=== PATIENT | male | born 1945 | race Caucasian/White ===

== ENCOUNTER 2020-09-18 10:22 | Outpatient (CLI) | payer MEDICARE | END 2020-09-18 10:23 | disposition home or self-care (01) | LOC: CTENTCT 10:22 | PROVIDERS: ATTEND Specialist | DX: J32.9 Chronic sinusitis, unspecified (principal) | CPT/HCPCS: 70486 ==

== ENCOUNTER 2020-12-09 14:08 | Outpatient (CLI) | payer MEDICARE ==
[2020-12-09 15:18] LABS: Anion Gap 14 mmol/L (10-20); BUN (Urea Nitrogen) 15 mg/dL (8.4-25.7); Calc. Creatinine Clearance 0 mL/min (70-130); Calcium 9.8 mg/dL (7.8-10.44); Carbon Dioxide 24 mmol/L (23-31); Chloride 104 mmol/L (98-107); Glucose 172 mg/dL (83-110); Potassium 4.3 mmol/L (3.5-5.1); Sodium 138 mmol/L (136-145)
[2020-12-09 15:53] LABS: SARS-CoV-2 NAA Rapid Test Not Detected (NotDetected)
== END 2020-12-09 14:09 | disposition home or self-care (01) ==
LOC: LABBT 14:08
PROVIDERS: ATTEND Specialist
DX: Z01.818 Encounter for other preprocedural examination (principal); J38.1 Polyp of vocal cord and larynx; K21.9 Gastro-esophageal reflux disease without esophagitis; R49.0 Dysphonia; Z20.822 Contact with and (suspected) exposure to COVID-19
CPT/HCPCS: 80048; 85014; 85018; 93005; U0002; 93010

== ENCOUNTER 2020-12-10 08:56 | Day surgery (SDC) | payer MEDICARE ==
[2020-12-09 16:06] VITALS: BMI 32.1
[2020-12-10] MEDS ORDERED: EPINEPHrine 1 MG/ML AMP ONE (09:38)
[2020-12-10] MEDS ORDERED: Propofol 500 MG/50 ML VIAL ONE (09:41)
[2020-12-10] MEDS ORDERED: Fentanyl 100 MCG/2 ML VIAL ONE ×2 (09:41)
[2020-12-10] MEDS ORDERED: PROPOFOL 200 MG/20 ML VIAL ONE (10:25)
[2020-12-10] MEDS ORDERED: Lidocaine 1% PF 5 ML VIAL ONE (10:25)
[2020-12-10] MEDS ORDERED: Ondansetron PF 4 MG/2 ML Vial ONE (10:25)
== END 2020-12-10 13:36 | disposition home or self-care (01) ==
LOC: SDC 08:56
PROVIDERS: ATTEND Specialist
PROC: 0CBV8ZZ Excision of Left Vocal Cord, Via Natural or Artificial Opening Endoscopic (ICD-10-PCS; principal; 2020-12-10)
DX: J38.3 Other diseases of vocal cords (principal); G47.30 Sleep apnea, unspecified; D64.89 Other specified anemias; K21.9 Gastro-esophageal reflux disease without esophagitis; E11.9 Type 2 diabetes mellitus without complications; Z79.84 Long term (current) use of oral hypoglycemic drugs; Z79.1 Long term (current) use of non-steroidal anti-inflammatories (NSAID); Z79.899 Other long term (current) drug therapy; Z87.891 Personal history of nicotine dependence; Z92.3 Personal history of irradiation; Z85.46 Personal history of malignant neoplasm of prostate
CPT/HCPCS: 36416; 88305; J0171; J2405; J2704; J3010

== ENCOUNTER 2022-04-12 05:49 | Observation (INO) | payer OTHER ==
[2022-04-11 09:41] VITALS: BMI 34.4
[2022-04-12] MEDS ORDERED: Vancomycin (BATCH) 1.5 GRAM/300 ML BAG ONE (06:14)
[2022-04-12] MEDS ORDERED: Sodium Chloride 0.9% 100 ML ONE ×2 (06:14→07:00)
[2022-04-12] MEDS ORDERED: Tranexamic Acid 1,000 MG/10 ML VIAL ONE (06:14)
[2022-04-12] MEDS ORDERED: Bupivacaine PF 0.5% 30 ML VIAL ONE (06:27)
[2022-04-12] MEDS ORDERED: Fentanyl 250 MCG/5 ML VIAL ONE (06:30)
[2022-04-12] MEDS ORDERED: Fentanyl 100 MCG/2 ML VIAL ONE (06:34)
[2022-04-12] MEDS ORDERED: Midazolam HCl 2 mg/2 ml Vial ONE (06:34)
[2022-04-12] MEDS ORDERED: Ropivacaine 0.5% HCl/PF (150 MG/30 ML VIAL) ONE (06:34)
[2022-04-12] MEDS ORDERED: CEFAZOLIN 2 GM VIAL ONE (07:00)
[2022-04-12] MEDS ORDERED: Zolpidem Tartrate 5 MG TAB PO PRN (07:18)
[2022-04-12] MEDS ORDERED: Acetaminophen 325 MG TAB PO PRN (07:18)
[2022-04-12] MEDS ORDERED: HYDROcodone/Acetaminophen 10/325 mg Tablet PO PRN (07:18)
[2022-04-12] MEDS ORDERED: Promethazine HCl 25 MG/ML VIAL IM PRN (07:18)
[2022-04-12] MEDS ORDERED: diphenhydrAMINE 25 MG CAP PO PRN (07:18)
[2022-04-12] MEDS ORDERED: Fentanyl 100 MCG/2 ML VIAL SLOW IVP PRN ×2 (07:18)
[2022-04-12] MEDS ORDERED: Ondansetron PF 4 MG/2 ML Vial IVP PRN (07:18)
[2022-04-12 07:37] LABS: SARS-CoV-2 NAA Rapid Test DETECTED (NotDetected)
[2022-04-12] MEDS ORDERED: PROPOFOL 20 ML ONE (08:19)
[2022-04-12] MEDS ORDERED: Ketorolac Tromethamine 30 MG/ML VIAL IVP PRN (09:06)
[2022-04-12] MEDS ORDERED: Ondansetron HCl/PF 4 MG/2 ML Vial IVP PRN (09:06)
[2022-04-12] MEDS: glipiZIDE 10 MG TAB PO SCH (14:54)
[2022-04-12] MEDS: Sodium Chloride 0.9% 1,000 ML IV SCH (14:54)
[2022-04-12] MEDS: Losartan 25 MG TAB PO SCH (14:55)
[2022-04-12] MEDS: Ferrous Gluconate 324 MG TAB PO SCH ×2 (14:55→15:26)
[2022-04-12] MEDS: metFORMIN 500 MG TAB PO SCH ×2 (14:55→15:26)
[2022-04-12] MEDS: CEFAZOLIN 2 GM in Sodium Chloride 0.9% 100 ML IVPB SCH ×2 (14:56→21:22)
[2022-04-12] MEDS: HYDROcodone/Acetaminophen 10/325 mg Tablet PO PRN ×2 (15:25→21:22)
[2022-04-12 18:58] LABS: SARS-CoV-2 NAA Rapid Test Not Detected (NotDetected)
[2022-04-12] MEDS: Multivitamin W/ Minerals 1 TAB PO SCH (19:51)
[2022-04-12] MEDS: Aspirin 81 mg Enteric Coated Tablet PO SCH ×2 (19:51→21:23)
[2022-04-12] MEDS: Senokot S 8.6-50 MG TAB PO SCH ×2 (19:51→21:23)
[2022-04-13] MEDS: HYDROcodone/Acetaminophen 10/325 mg Tablet PO PRN ×3 (01:16→14:13)
[2022-04-13] MEDS: Sodium Chloride 0.9% 1,000 ML IV SCH ×2 (06:50→14:13)
[2022-04-13 07:27] LABS: Hemoglobin 13.5 g/dL (14.0-18.0); Mean Corpuscular HGB CONC 33.8 g/dL (32.0-36.0); Mean Corpuscular Hemoglobin 36.1 pg (27.0-31.0); Mean Platelet Volume 8.8 fL (7.4-10.4); Platelet Count 194 10x3/uL (130-400); RBC Distribution Width 11.1 % (11.5-14.5); Red Blood Cell (RBC) Count 3.75 mill/uL (4.70-6.10); White Blood Cell (WBC) Count 12.6 10x3/uL (4.8-10.8)
[2022-04-13] MEDS: Ferrous Gluconate 324 MG TAB PO SCH (09:21)
[2022-04-13] MEDS: Senokot S 8.6-50 MG TAB PO SCH (09:21)
[2022-04-13] MEDS: Multivitamin W/ Minerals 1 TAB PO SCH (09:21)
[2022-04-13] MEDS: metFORMIN 500 MG TAB PO SCH (09:22)
[2022-04-13] MEDS: Aspirin 81 mg Enteric Coated Tablet PO SCH (09:22)
[2022-04-13] MEDS: glipiZIDE 10 MG TAB PO SCH (09:22)
[2022-04-13] MEDS: Losartan 25 MG TAB PO SCH (09:22)
[2022-04-13 13:33] VITALS: BP 110/65; TEMP 98.8
== END 2022-04-13 14:30 | disposition home health service (06) ==
LOC: SDC 05:49 → SURG B 10:51
PROVIDERS: ADMIT Orthopaedic Surgery; ATTEND Orthopaedic Surgery
PROC: 0SRB04A Replacement of Left Hip Joint with Ceramic on Polyethylene Synthetic Substitute, Uncemented, Open Approach (ICD-10-PCS; principal; 2022-04-12)
DX: M16.0 Bilateral primary osteoarthritis of hip (principal); U07.1 COVID-19; E11.9 Type 2 diabetes mellitus without complications; Z85.46 Personal history of malignant neoplasm of prostate; Z79.84 Long term (current) use of oral hypoglycemic drugs; Z79.899 Other long term (current) drug therapy
CPT/HCPCS: 36415; 36416; 85027; C1776; J2250; J2704; J2795; J3010; J3370; J3490; S0020; U0002

== ENCOUNTER 2022-07-21 09:15 | Outpatient (CLI) | payer OTHER ==
[2022-07-21 11:01] LABS: #Basophils 0.1 10x3/uL (0.0-0.2); #Eosinphils 0.1 10x3/uL (0.0-0.5); #Monocytes 0.6 10x3/uL (0.0-1.1); #Neutrophils 3.8 10x3/uL (1.5-8.4); %Basophils 0.9 % (0.0-2.0); %Eosinophils 2.2 % (0.0-6.0); %Lymphocytes 28.7 % (18.0-47.0); %Monocytes 9.4 % (0.0-10.0); %Neutrophils 58.5 % (40.0-75.0); Hemoglobin 14.3 g/dL (13.5-17.5); Mean Corpuscular HGB CONC 34.1 g/dL (32.0-36.0); Mean Corpuscular Hemoglobin 34.2 pg (27.0-33.0); Mean Corpuscular Volume 100.2 fl (81.2-95.1); Mean Platelet Volume 10.9 fl (7.4-10.4); Platelet Count 186 10x3/uL (150-450); RBC Distribution Width 12.1 % (11.5-14.5); Red Blood Cell (RBC) Count 4.18 10x6/uL (4.32-5.72); White Blood Cell (WBC) Count 6.5 10x3/uL (3.5-10.5)
[2022-07-21 11:10] LABS: INR-International Normal Ratio 0.9; Prothrombin Time 10.3 sec (9.5-12.1)
[2022-07-21 11:14] LABS: Anion Gap 15 mmol/L (10-20); BUN (Urea Nitrogen) 16 mg/dL (8.4-25.7); Calc. Creatinine Clearance 0 mL/min (70-130); Calcium 9.2 mg/dL (7.8-10.44); Carbon Dioxide 22 mmol/L (23-31); Chloride 107 mmol/L (98-107); Estimated GFR 90; Glucose 228 mg/dL (83-110); Potassium 4.6 mmol/L (3.5-5.1); Sodium 139 mmol/L (136-145)
== END 2022-07-21 09:16 | disposition home or self-care (01) ==
LOC: LABBT 09:15
PROVIDERS: ATTEND Orthopaedic Surgery
DX: Z01.812 Encounter for preprocedural laboratory examination (principal); M16.11 Unilateral primary osteoarthritis, right hip
CPT/HCPCS: 80048; 85025; 85610; 87081

== ENCOUNTER 2022-07-26 06:46 | Observation (INO) | payer OTHER ==
[2022-07-22 15:24] VITALS: BMI 31.4
[2022-07-26] MEDS ORDERED: fentaNYL 50 mcg/mL 1 mL Vial ONE (07:39)
[2022-07-26] MEDS ORDERED: Midazolam HCl 2 mg/2 ml Vial ONE (07:39)
[2022-07-26] MEDS ORDERED: Bupivacaine PF 0.5% 30 ML VIAL ONE ×2 (07:40→09:02)
[2022-07-26] MEDS ORDERED: Vancomycin (BATCH) 1.5 GRAM/300 ML BAG ONE (08:00)
[2022-07-26] MEDS ORDERED: Tranexamic Acid 1,000 MG/10 ML VIAL ONE (08:00)
[2022-07-26] MEDS ORDERED: Sodium Chloride 0.9% 200 ML ONE (08:00)
[2022-07-26] MEDS ORDERED: CEFAZOLIN 2 GM VIAL ONE (08:00)
[2022-07-26] MEDS ORDERED: Ondansetron PF 4 MG/2 ML Vial IVP PRN (09:09)
[2022-07-26] MEDS ORDERED: Zolpidem Tartrate 5 MG TAB PO PRN (09:09)
[2022-07-26] MEDS ORDERED: Promethazine HCl 25 MG/ML VIAL IM PRN ×2 (09:09→11:02)
[2022-07-26] MEDS ORDERED: Fentanyl 100 MCG/2 ML VIAL SLOW IVP PRN ×2 (09:09)
[2022-07-26] MEDS ORDERED: Acetaminophen 325 MG TAB PO PRN (09:09)
[2022-07-26] MEDS ORDERED: HYDROcodone/Acetaminophen 10/325 mg Tablet PO PRN (09:09)
[2022-07-26] MEDS ORDERED: fentaNYL PF 100 MCG/2 ML SYRINGE ONE ×2 (09:15→09:50)
[2022-07-26] MEDS ORDERED: Lidocaine 1% PF 5 ML VIAL ONE (09:25)
[2022-07-26] MEDS ORDERED: Rocuronium Bromide 10 MG/ML (10ML VIAL) ONE (09:25)
[2022-07-26] MEDS ORDERED: PROPOFOL 200 MG/20 ML VIAL ONE (09:25)
[2022-07-26] MEDS ORDERED: Phenylephrine 10 MG/ML VIAL ONE (09:25)
[2022-07-26] MEDS ORDERED: Ketorolac Tromethamine 30 MG/ML VIAL ONE (09:25)
[2022-07-26] MEDS ORDERED: Ondansetron PF 4 MG/2 ML Vial ONE (09:25)
[2022-07-26] MEDS ORDERED: Bupivacaine HCl 0.5%/Epinephrine 1:200,000/PF 30 ml Vial ONE (09:25)
[2022-07-26] MEDS ORDERED: GLYCOPYRROLATE/PF 0.2 MG/ML VIAL ONE (09:25)
[2022-07-26] MEDS ORDERED: Dexamethasone 20 MG/5 ML VIAL ONE (09:25)
[2022-07-26] MEDS ORDERED: NEOSTIGMINE 3 MG/3 ML SYR 3 MG/3 ML SYRINGE ONE (09:25)
[2022-07-26] MEDS ORDERED: fentaNYL 50 mcg/mL 1 mL Vial SLOW IVP PRN ×2 (10:06→10:07)
[2022-07-26] MEDS ORDERED: Ondansetron HCl/PF 4 MG/2 ML Vial IVP PRN (11:02)
[2022-07-26] MEDS ORDERED: CEFAZOLIN 2 GM in Sodium Chloride 0.9% 100 ML IVPB SCH (14:00)
[2022-07-26] MEDS: HYDROcodone/Acetaminophen 10/325 mg Tablet PO PRN ×2 (14:05→21:09)
[2022-07-26] MEDS: diphenhydrAMINE 25 MG CAP PO PRN ×2 (14:05→21:07)
[2022-07-26] MEDS: Sodium Chloride 0.9% 1,000 ML IV SCH ×2 (15:30→19:15)
[2022-07-26] MEDS: CEFAZOLIN 2 GM in Sodium Chloride 0.9% 100 ML IVPB SCH (16:15)
[2022-07-26] MEDS ORDERED: glipiZIDE 10 MG TAB PO SCH (21:00)
[2022-07-26] MEDS ORDERED: metFORMIN 500 MG TAB PO SCH (21:00)
[2022-07-26] MEDS: Ferrous Gluconate 324 MG TAB PO SCH (21:08)
[2022-07-26] MEDS: glipiZIDE 10 MG TAB PO SCH (21:08)
[2022-07-26] MEDS: Senokot S 8.6-50 MG TAB PO SCH (21:08)
[2022-07-26] MEDS: metFORMIN 500 MG TAB PO SCH (21:08)
[2022-07-26] MEDS: Aspirin 81 mg Enteric Coated Tablet PO SCH (21:09)
[2022-07-27] MEDS: CEFAZOLIN 2 GM in Sodium Chloride 0.9% 100 ML IVPB SCH (00:30)
[2022-07-27] MEDS: Sodium Chloride 0.9% 1,000 ML IV SCH (04:55)
[2022-07-27] MEDS: diphenhydrAMINE 25 MG CAP PO PRN (05:16)
[2022-07-27 06:07] LABS: Hemoglobin 13.8 g/dL (14.0-18.0); Mean Corpuscular HGB CONC 32.3 g/dL (32.0-36.0); Mean Corpuscular Hemoglobin 34.5 pg (27.0-31.0); Mean Platelet Volume 8.5 fL (7.4-10.4); Platelet Count 166 10x3/uL (130-400); RBC Distribution Width 11.4 % (11.5-14.5); Red Blood Cell (RBC) Count 3.99 mill/uL (4.70-6.10); White Blood Cell (WBC) Count 9.1 10x3/uL (4.8-10.8)
[2022-07-27] MEDS ORDERED: Aspirin 81 mg Enteric Coated Tablet PO SCH (09:00)
[2022-07-27] MEDS ORDERED: Losartan 25 MG TAB PO SCH ×2 (09:00)
[2022-07-27] MEDS ORDERED: Multivitamin W/ Minerals 1 TAB PO SCH (09:00)
[2022-07-27] MEDS: glipiZIDE 10 MG TAB PO SCH (09:02)
[2022-07-27] MEDS: Aspirin 81 mg Enteric Coated Tablet PO SCH (09:02)
[2022-07-27] MEDS: metFORMIN 500 MG TAB PO SCH (09:02)
[2022-07-27] MEDS: Senokot S 8.6-50 MG TAB PO SCH (09:03)
[2022-07-27] MEDS: Ferrous Gluconate 324 MG TAB PO SCH (09:03)
[2022-07-27 13:00] VITALS: BP 96/60; TEMP 98.3
== END 2022-07-27 12:20 | disposition home or self-care (01) ==
LOC: SDC 06:46 → SURG B 11:55
PROVIDERS: ADMIT Orthopaedic Surgery; ATTEND Orthopaedic Surgery
PROC: 0SR90J9 Replacement of Right Hip Joint with Synthetic Substitute, Cemented, Open Approach (ICD-10-PCS; principal; 2022-07-26)
DX: M16.11 Unilateral primary osteoarthritis, right hip (principal); E11.9 Type 2 diabetes mellitus without complications; Z96.642 Presence of left artificial hip joint; Z79.84 Long term (current) use of oral hypoglycemic drugs; Z79.82 Long term (current) use of aspirin; Z79.899 Other long term (current) drug therapy; Z88.5 Allergy status to narcotic agent; Z87.891 Personal history of nicotine dependence
CPT/HCPCS: 36415; 36416; 85027; 96365; 96375; C1776; G0378; J1100; J1885; J2250; J2370; J2405; J2704; J3010; J3370; J3490; S0020

== ENCOUNTER 2022-10-13 09:58 | Outpatient (CLI) | payer OTHER ==
[2022-10-13 11:39] LABS: #Basophils 0.1 10x3/uL (0.0-0.2); #Eosinphils 0.1 10x3/uL (0.0-0.5); #Monocytes 0.8 10x3/uL (0.0-1.1); #Neutrophils 5.1 10x3/uL (1.5-8.4); %Basophils 1.1 % (0.0-2.0); %Eosinophils 1.7 % (0.0-6.0); %Lymphocytes 21.5 % (18.0-47.0); %Monocytes 10.7 % (0.0-10.0); %Neutrophils 64.6 % (40.0-75.0); Hemoglobin 14.8 g/dL (13.5-17.5); Mean Corpuscular HGB CONC 34.3 g/dL (32.0-36.0); Mean Corpuscular Hemoglobin 34.4 pg (27.0-33.0); Mean Corpuscular Volume 100.2 fl (81.2-95.1); Mean Platelet Volume 10.6 fl (7.4-10.4); Platelet Count 210 10x3/uL (150-450); RBC Distribution Width 12.7 % (11.5-14.5); White Blood Cell (WBC) Count 7.9 10x3/uL (3.5-10.5)
[2022-10-13 11:57] LABS: ALT (SGPT) 16 U/L (8-55); AST (SGOT) 23 U/L (5-34); Alkaline Phosphatase 67 U/L (40-110); Anion Gap 15 mmol/L (10-20); BUN (Urea Nitrogen) 16 mg/dL (8.4-25.7); Bilirubin, Total 1.5 mg/dL (0.2-1.2); Calc. Creatinine Clearance 0 mL/min (70-130); Calcium 9.3 mg/dL (7.8-10.44); Carbon Dioxide 20 mmol/L (23-31); Chloride 106 mmol/L (98-107); Estimated GFR 76; Globulin 3.2 g/dL (2.4-3.5); Glucose 153 mg/dL (83-110); Potassium 4.4 mmol/L (3.5-5.1); Protein, Total 7.2 g/dL (5.8-8.1); Sodium 137 mmol/L (136-145)
== END 2022-10-13 09:59 | disposition home or self-care (01) ==
LOC: LABBT 09:58
PROVIDERS: ATTEND Internal Medicine Cardiovascular Disease
DX: Z01.818 Encounter for other preprocedural examination (principal); I35.0 Nonrheumatic aortic (valve) stenosis
CPT/HCPCS: 80053; 85025; 93005; 93010

== ENCOUNTER 2023-05-18 11:06 | Inpatient (IN) | payer MEDICARE, OTHER ==
[2023-05-18] MEDS ORDERED: Iopamidol-370 76% 500 ML MDV (1 ML CHARGE) ONE ×2 (11:26→11:32)
[2023-05-18 11:51] LABS: #Basophils 0.1 thou/uL (0.0-0.2); #Eosinphils 0.1 thou/uL (0.0-0.7); #Monocytes 0.8 thou/uL (0.11-0.59); #Neutrophils 5.4 thou/uL (1.40-6.50); %Basophils 0.9 % (0.0-1.0); %Eosinophils 1.2 % (0.0-10.0); %Lymphocytes 16.3 % (21.0-51.0); %Monocytes 10.1 % (0.0-10.0); %Neutrophils 71.1 % (42.0-75.0); Hematocrit 28.6 % (42.0-52.0); Mean Corpuscular HGB CONC 31.5 g/dL (32.0-36.0); Mean Corpuscular Volume 95.3 fl (78.0-98.0); Mean Platelet Volume 10.9 fL (7.4-10.4); Platelet Count 140 10x3/uL (130-400); RBC Distribution Width 12.7 % (11.5-14.5); White Blood Cell (WBC) Count 7.6 10x3/uL (4.8-10.8)
[2023-05-18 12:13] LABS: ALT (SGPT) 8 U/L (8-55); AST (SGOT) 14 U/L (5-34); Albumin 3.8 g/dL (3.4-4.8); Alkaline Phosphatase 45 U/L (40-110); Anion Gap 12 mmol/L (10-20); BUN (Urea Nitrogen) 20 mg/dL (8.4-25.7); Bilirubin, Total 1.1 mg/dL (0.2-1.2); Calc. Creatinine Clearance 0 mL/min (70-130); Calcium 8.9 mg/dL (7.8-10.44); Carbon Dioxide 21 mmol/L (23-31); Chloride 108 mmol/L (98-107); Estimated GFR 90; Glucose 181 mg/dL (83-110); Lipase 27 U/L (8-78); Potassium 4.2 mmol/L (3.5-5.1); Protein, Total 6.8 g/dL (5.8-8.1); Sodium 137 mmol/L (136-145)
[2023-05-18 12:27] LABS: Troponin I Less than 0.010 ng/mL (< 0.028)
[2023-05-18 12:36] LABS: PTT 27.8 sec (22.9-36.1)
[2023-05-18 13:32] LABS: Bacteria/HPF None Seen HPF (None Seen); Bilirubin Negative (Negative); Blood, Urine Negative (Negative); CAUTI Indications for Culture Dysuria,urgency,freq; Clarity Clear (Clear); Glucose, Urine (Dipstick) Greater than 1000 mg/dL (Negative); Ketone, Urine Negative (Negative); Leukocyte Negative Leu/uL (Negative); Nitrite Negative (Negative); Protein, Urine (Dipstick) Negative (Neg-Trace); RBC/HPF 0-3 HPF (0-3); Specific Gravity, Urine 1.031 (1.002-1.036); Squamous Epithelial None Seen HPF (0-3); Urobilinogen Normal mg/dL (Less than 2); WBC/HPF 0-3 HPF (0-3); pH, Urine 5.5 (5.0-9.0)
[2023-05-18 13:35] LABS: Urine Culture Reflex No No
[2023-05-18 16:38] LABS: SARS-CoV-2 NAA Rapid Test Not Detected (NotDetected)
[2023-05-18 16:46] LABS: Iron 25 ug/dL (65-175); Iron Binding Capacity, Total 398 mcg/dL (261-462)
[2023-05-18] MEDS ORDERED: Acetaminophen 325 MG TAB PO PRN (17:15)
[2023-05-18] MEDS ORDERED: Ondansetron PF 4 MG/2 ML Vial IVP PRN (17:15)
[2023-05-18] MEDS ORDERED: Ondansetron ODT 4 MG TAB PO PRN (17:15)
[2023-05-18 17:16] LABS: Iron 23 ug/dL (65-175); Iron Binding Capacity, Total 389 mcg/dL (261-462)
[2023-05-18 17:18] LABS: Troponin I Less than 0.010 ng/mL (< 0.028)
[2023-05-18] MEDS ORDERED: Glucagon 1 MG/ML KIT IM PRN (17:47)
[2023-05-18] MEDS ORDERED: Dextrose 50% Abboject 50 ML SYRINGE SLOW IVP PRN (17:47)
[2023-05-18] MEDS ORDERED: Dextrose 5% in Water 1,000 ML IV PRN (17:47)
[2023-05-18] MEDS ORDERED: HumaLOG 300 UNITS/3 ML VIAL SC PRN ×2 (17:47)
[2023-05-18 18:48] LABS: Hemoglobin A1c 5.8 % (4.0-6.0)
[2023-05-18 21:45] LABS: Troponin I Less than 0.010 ng/mL (< 0.028)
[2023-05-18] MEDS: Atorvastatin Calcium 20 MG TAB PO SCH (21:55)
[2023-05-18 22:04] VITALS: BMI 29.5
[2023-05-19 05:23] LABS: ALT (SGPT) 7 U/L (8-55); AST (SGOT) 13 U/L (5-34); Albumin 3.3 g/dL (3.4-4.8); Alkaline Phosphatase 43 U/L (40-110); Anion Gap 11 mmol/L (10-20); BUN (Urea Nitrogen) 15 mg/dL (8.4-25.7); Bilirubin, Total 0.8 mg/dL (0.2-1.2); Calc. Creatinine Clearance 119 mL/min (70-130); Calcium 8.5 mg/dL (7.8-10.44); Carbon Dioxide 21 mmol/L (23-31); Chloride 109 mmol/L (98-107); Estimated GFR 92; Globulin 2.8 g/dL (2.4-3.5); Glucose 113 mg/dL (83-110); Potassium 3.8 mmol/L (3.5-5.1); Protein, Total 6.1 g/dL (5.8-8.1); Sodium 137 mmol/L (136-145)
[2023-05-19] MEDS: Losartan 25 MG TAB PO SCH (08:58)
[2023-05-19] MEDS: Clopidogrel Bisulfate 75 MG TAB PO SCH (08:59)
[2023-05-19] MEDS: Aspirin 81 mg Enteric Coated Tablet PO SCH (08:59)
[2023-05-19] MEDS ORDERED: Losartan 25 MG TAB PO SCH (09:00)
[2023-05-19 10:25] LABS: Hematocrit 26.8 % (42.0-52.0); Hemoglobin 8.3 g/dL (14.0-18.0); Platelet Count 133 10x3/uL (130-400)
[2023-05-19] MEDS: metFORMIN 500 MG TAB PO SCH (16:59)
[2023-05-19 19:33] LABS: Hematocrit 27.5 % (42.0-52.0); Hemoglobin 8.4 g/dL (14.0-18.0); Platelet Count 128 10x3/uL (130-400)
[2023-05-19] MEDS: GoLYTELY 4,000 ml Bottle PO SCH (19:50)
[2023-05-19] MEDS: Atorvastatin Calcium 20 MG TAB PO SCH (19:51)
[2023-05-20] MEDS: GoLYTELY 4,000 ml Bottle PO SCH (02:07)
[2023-05-20 04:59] LABS: #Basophils 0.1 thou/uL (0.0-0.2); #Eosinphils 0.2 thou/uL (0.0-0.7); #Monocytes 0.7 thou/uL (0.11-0.59); #Neutrophils 2.8 thou/uL (1.40-6.50); %Eosinophils 3.6 % (0.0-10.0); %Lymphocytes 23.3 % (21.0-51.0); %Monocytes 14.7 % (0.0-10.0); %Neutrophils 57.2 % (42.0-75.0); Hematocrit 29.2 % (42.0-52.0); Hemoglobin 9.2 g/dL (14.0-18.0); Mean Corpuscular HGB CONC 31.5 g/dL (32.0-36.0); Mean Corpuscular Hemoglobin 29.9 pg (27.0-31.0); Mean Corpuscular Volume 94.8 fl (78.0-98.0); Mean Platelet Volume 11.4 fL (7.4-10.4); Platelet Count 154 10x3/uL (130-400); RBC Distribution Width 12.5 % (11.5-14.5); Red Blood Cell (RBC) Count 3.08 mill/uL (4.70-6.10)
[2023-05-20 05:26] LABS: Anion Gap 10 mmol/L (10-20); BUN (Urea Nitrogen) 9 mg/dL (8.4-25.7); Calc. Creatinine Clearance 123 mL/min (70-130); Calcium 8.9 mg/dL (7.8-10.44); Carbon Dioxide 24 mmol/L (23-31); Chloride 107 mmol/L (98-107); Estimated GFR 93; Glucose 128 mg/dL (83-110); Potassium 3.8 mmol/L (3.5-5.1); Sodium 137 mmol/L (136-145)
[2023-05-20] MEDS ORDERED: Lidocaine 2% PF 5 ML VIAL ONE (08:15)
[2023-05-20] MEDS ORDERED: PROPOFOL 40 ML ONE (08:15)
[2023-05-20] MEDS ORDERED: PHENYLEPHRINE-NS 100 MCG/ML 10 ML SYRINGE ONE (08:15)
[2023-05-20] MEDS ORDERED: Promethazine HCl 25 MG/ML VIAL IM PRN (08:46)
[2023-05-20] MEDS ORDERED: Ondansetron HCl/PF 4 MG/2 ML Vial IVP PRN (08:46)
[2023-05-20] MEDS: metFORMIN 500 MG TAB PO SCH (09:52)
[2023-05-20] MEDS: Losartan 25 MG TAB PO SCH (09:53)
[2023-05-20] MEDS: Clopidogrel Bisulfate 75 MG TAB PO SCH (09:53)
[2023-05-20] MEDS: Aspirin 81 mg Enteric Coated Tablet PO SCH (09:53)
[2023-05-20 13:27] VITALS: BP 116/58; TEMP 97.4
[2023-05-21] MEDS ORDERED: FLU VACC QS2023(65UP)/MF59C/PF 60 MCG/0.5 ML SYRINGE IM ONE (22:00)
== END 2023-05-20 13:53 | disposition home or self-care (01) | DRG 812 ==
LOC: ERS 11:06 → ERHOLD 16:31 → 2SW 20:12 → OBSVTOIN 05-19 15:15
PROVIDERS: ADMIT Internal Medicine; ATTEND Family Medicine
PROC: 0DB98ZX Excision of Duodenum, Via Natural or Artificial Opening Endoscopic, Diagnostic (ICD-10-PCS; principal; 2023-05-20)
PROC: 0DBK8ZZ Excision of Ascending Colon, Via Natural or Artificial Opening Endoscopic (ICD-10-PCS; 2023-05-20)
PROC: 0DBL8ZZ Excision of Transverse Colon, Via Natural or Artificial Opening Endoscopic (ICD-10-PCS; 2023-05-20)
PROC: 0W3P8ZZ Control Bleeding in Gastrointestinal Tract, Via Natural or Artificial Opening Endoscopic (ICD-10-PCS; 2023-05-20)
DX: D50.9 Iron deficiency anemia, unspecified (principal); E11.9 Type 2 diabetes mellitus without complications; I25.10 Atherosclerotic heart disease of native coronary artery without angina pectoris; Z95.5 Presence of coronary angioplasty implant and graft; Z11.52 Encounter for screening for COVID-19; Z88.5 Allergy status to narcotic agent; Z79.899 Other long term (current) drug therapy; Z79.82 Long term (current) use of aspirin; Z79.84 Long term (current) use of oral hypoglycemic drugs; I50.9 Heart failure, unspecified; I11.0 Hypertensive heart disease with heart failure; E78.00 Pure hypercholesterolemia, unspecified; Z87.891 Personal history of nicotine dependence; I48.0 Paroxysmal atrial fibrillation; K64.8 Other hemorrhoids; K62.7 Radiation proctitis; K57.30 Diverticulosis of large intestine without perforation or abscess without bleeding
CPT/HCPCS: 36415; 36416; 71045; 71275; 74177; 80048; 80053; 81001; 82274; 82728; 83036; 83540; 83550; 83690; 83735; 83880; 84443; 84484; 85014; 85018; 85025; 85049; 85610; 85730; 86850; 86900; 86901; 88305; 93005; 93306; G0378; J1815; J2001; J2704; Q9967

== ENCOUNTER 2023-06-19 11:57 | Outpatient (CLI) | payer OTHER | END 2023-06-19 11:58 | disposition home or self-care (01) | LOC: ULT 11:57 | PROVIDERS: ATTEND Chiropractor | DX: I25.10 Atherosclerotic heart disease of native coronary artery without angina pectoris (principal); I08.1 Rheumatic disorders of both mitral and tricuspid valves | CPT/HCPCS: 93306 ==